=== PATIENT | male | born 2000 | race Two or more races ===

== ENCOUNTER 2023-09-16 09:32 | Outpatient (AMB) | payer OTHER, SELFPAY ==
[2023-09-16 10:10] VITALS: BP 110/60; PULSE 102; TEMP 37.1; O2SAT 97; BMI 23.2
--- NOTE | 2023-09-16 10:10 | MHC.OFFWIV ---
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 Symptoms started yesterday after he ate [employer] from [employer]. Pt reports abdominal cramping. PFSH Social History Patient Tobacco Use Status: Never used Tobacco Review of Systems Const All systems reviewed & are unremarkable except as noted in HPI and below Physical Exam Vital Signs: Last Vital Signs Temp 98.7 F 09/16/23 10:10 Pulse 102 H 09/16/23 10:10 BP 110/60 09/16/23 10:10 Pulse Ox 97 09/16/23 10:10 Oxygen Delivery Method Room Air 09/16/23 10:10 BMI result Body Mass Index 23.2 Const General: no acute distress; No comfortable Orientation/consciousness: patient oriented x3 GI Inspection: Yes normal to inspection Palpation (GI): Soft to palpation, Tenderness to palpation present (GI) in the LLQ, in the RLQ, in the LUQ and in the RUQ, no guarding, not rigid and No hepatosplenomegaly present Auscultation: Hyperactive bowel sounds present Rectal Exam - Male: Yes deferred Neuro General: patient oriented x3, gait normal and moves all extremities Psych Speech and movement: Normal speech and movement present Assessment & Plan Assessment & Plan (1) Gastritis: Code(s): K29.70 - Gastritis, unspecified, without bleeding Qualifiers: Gastritis type: other gastritis Chronicity: acute Gastritis bleeding: without bleeding Qualified Code(s): K29.00 - Acute gastritis without bleeding Plan: - Warm fluids - Avoid spices, oily and greasy foods. - Gatorade and GingerAle - Rest (2) Nausea vomiting and diarrhea: Code(s): R11.2 - Nausea with vomiting, unspecified; R19.7 - Diarrhea, unspecified Plan: - Imodium - Zofran - Reglan - RTC if symptoms not better or ED if worse. Orders: Orders AMB Ondansetron Adult Dose Today R11.2 - Nausea with vomiting, unspecified, R19.7 - Diarrhea, unspecified Medications: New ondansetron 8 mg (2 x 4 mg) translingual ONCE 2 tabs 0RF nausea and vomiting R11.2 - Nausea with vomiting, unspecified, R19.7 - Diarrhea, unspecified ondansetron 8 mg PO Q8H 30 tabs 0RF nausea and vomiting K29.00 - Acute gastritis without bleeding, R11.2 - Nausea with vomiting, unspecified, R19.7 - Diarrhea, unspecified metoclopramide HCl (Reglan) 10 mg PO Q6H PRN 30 tabs 0RF nausea and vomiting K29.00 - Acute gastritis without bleeding, R11.2 - Nausea with vomiting, unspecified, R19.7 - Diarrhea, unspecified loperamide (Imodium A-D) 2 mg PO Q6H PRN 60 caps 0RF loose stool R11.2 - Nausea with vomiting, unspecified, R19.7 - Diarrhea, unspecified Coding Level of Care Code Est Pt Level 3 (51117) Diagnoses Other acute gastritis without hemorrhage K29.00 Gastritis type: other gastritis Chronicity: acute Gastritis bleeding: without bleeding Nausea vomiting and diarrhea R11.2; R19.7 Time Spent (min) 15
== END 2023-09-16 10:44 | disposition home or self-care (01) ==
PROVIDERS: Visit Provider Nurse Practitioner Family
DX: K29.00 Acute gastritis without bleeding (principal); R11.2 Nausea with vomiting, unspecified; R19.7 Diarrhea, unspecified
CPT/HCPCS: 99213

== ENCOUNTER 2025-03-28 11:33 | Outpatient (AMB) | payer OTHER, SELFPAY ==
[2025-03-28 11:38] VITALS: BP 104/60; PULSE 76; TEMP 36.8; O2SAT 97; BMI 24.4
--- NOTE | 2025-03-28 11:38 | AM.OFFWIN_ITS ---
Intake Vital Signs 03/28/25 11:38 Height 5 ft 10 in Weight 170 lb BMI 24.4 BP 104/60 Blood Pressure Location Lt brachial Position Sitting Pulse 76 Pulse Source Pulse Oximeter Temp 98.2 F Temp Source Oral Pulse Oximetry (%) 97 Oxygen Delivery Method Room Air Intake Visit Reasons: EP Cough for over a month Intake Note: pt presents with chest congestion with productive cough Patient Tobacco Use Status: Never used Tobacco Allergies No Known Allergies Allergy (Verified 03/28/25 11:42) Medication List - Last Reconciled 03/28/25 by Anish Robert MD No Known Home Meds Do you need a note to return to daycare/school/sports/work: No HPI EP Cough for over a month HPI Details History of Present Illness The patient is a 23-year-old male presenting with persistent cough. Persistent Cough: - Duration: Approximately one month, sta rting about three Mondays ago. - Symptoms: Cough with phlegm production in the throat and esophagus; described as a lot of phlegm sensation in the lungs. - Associated Symptoms: Initial symptoms included lots of sinus pressure and congestion; no current chest pain, and sometimes cough is triggered by sharp inhalation. - Symptom Progression: No notable change mentioned in severity; no fever or shortness of breath at present. - Alleviating/Worsening Factors: The cou gh isn't worsened by deep breaths but is induced by sharp inhalation. - Previous Treatments: The patient took acetaminophen and a form of cough suppressant but did not use any liquid medications. - Current Status: The cough remains pers istent, possibly due to an unresolved infection. Medical History: - No reported history of asthma. Medications: - Acetaminophen, previously taken. - Cough suppressant, previously taken. Problem List - Persistent cough Plan - Prescribed antibiotics to address the potential unresolved infection contributing to the cough. - Prescribed a short course of prednison e to reduce airway inflammation and improve breathing comfort. - Recommended follow-up - Discussed the importance of [facility] primary care for ongoing health monitoring. 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 Persistent Cough: - Duration: Approximately one month, starting about three Mon ago. - Symptoms: Cough with phlegm production in the throat and esophagus; described as a lot of phlegm sensation in the lungs. - Associated Symptoms: Initial symptoms included lots of sinus pressure and congestion; no current chest pain, and sometimes cough is triggered by sharp inhalation. - Symptom Progression: No notable change mentioned in severity; no fever or shortness of breath at present. - Alleviating/Worsening Factors: The cough isn't worsened by deep breaths but is induced by sharp inhalation. - Previous Treatments: The patient took acetaminophen and a form of cough suppressant but did not use any liquid medications. - Current Status: The cough remains persistent, possibly due to an unresolved infection. Medical History: - No reported history of asthma. Medications: - Acetaminophen, previously taken. - Cough suppressant, previously taken. Problem List - Persistent cough Plan - Prescribed antibiotics to address the potential unresolved infection contributing to the cough. - Prescribed a short course of prednisone to reduce airway inflammation and improve breathing comfort. - Recommended follow-up - Discussed the importance of establishing primary care for ongoing health monitoring. Medications: New prednisone 10 mg PO DAILY 5 tabs 0RF 5 days azithromycin Take 2 tablets today then 1 daily 250 mg PO ONCE 6 tabs 0RF 5 days J06.9 - Acute upper respiratory infection, unspecified Coding Level of Care Code Est Pt Level 3 (09343) Diagnoses Persistent cough R05.3
== END 2025-03-28 11:58 | disposition home or self-care (01) ==
PROVIDERS: Visit Provider Internal Medicine
DX: R05.3 Chronic cough (principal)

== ENCOUNTER → 2025-03-28 11:33 | Outpatient (BNVA) | payer OTHER, SELFPAY | PROVIDERS: Visit Provider Internal Medicine | DX: R05.3 Chronic cough (principal); J06.9 Acute upper respiratory infection, unspecified | CPT/HCPCS: 99212 ==